=== PATIENT | male | born 1980 | race Caucasian/White ===

== ENCOUNTER 2023-12-07 10:14 | Inpatient (IN) | payer SELFPAY ==
[2023-12-07 11:04] VITALS: BP 168/101; PULSE 137; RESP 18; TEMP 36.6; O2SAT 97; BMI 24.5
--- NOTE | 2023-12-07 11:08 | ECG_ITS ---
[facility] Test Date: 2023-12-07 Pat Name: Kalpesh Jim Department: Room: Gender: Male Senior Corporate Recruiter: : 1980 Requested By: Irish Young Order Number: [id number] Monserrat MD: Ha Duran M.D. Measurements Intervals [place] Rate: 142 P: 64 MO: 134 QRS: 73 QRSD: 81 T: 57 QT: 289 QTc: 445 Interpretive Statements SINUS TACHYCARDIA MODERATE ST DEPRESSION [0.05+ mV ST DEPRESSION] No previous ECG available for comparison Electronically Signed On 12-07-2023 14:22:26 CDT by Ha Duran M.D. [id number]
--- NOTE | 2023-12-07 11:34 | W.ED.ALCOHOL ---
HPI - Alcohol General: Chief Complaint: General Medical Stated Complaint: detox from alcohol Time Seen by Provider: 12/07/23 11:24 Source: patient Mode of arrival: ambulatory Limitations: no limitations History of Present Illness: Patient is a 43-year-old male presents to ED today stating his housekeeping director told him to come to the emergency department for hospitalization for alcohol detox. He reportedly has been staying in some type of sober living facility. He states he had a 5-month stent of sobriety but relapsed 3 months ago and has been drinking since. He states has remained clean from methamphetamine. He arrives acutely intoxicated. He states he is having issues at his sobriety house stating he is having some homicidal thoughts regarding some of the other individuals. He is not suicidal. MD complaint: alcohol intoxication and desires rehab Last drink: Hours (ago) Chronic alcohol use: Yes Previous visits for alcohol intoxication: No Recent trauma: No Associated symptoms: Reports no associated symptoms and depression; Deny abdominal pain, nausea, suicidal ideation, syncope or vomiting Treatments prior to arrival: none Review of Systems Const: Denies: fever(s) or chills Card: Denies: chest pain, palpitations, lightheadedness or syncope Resp: Denies: dyspnea GI: Denies: abdominal pain, nausea, vomiting or diarrhea Skin/Breast: Denies: rash Neuro: Denies: headache(s) Psych: Reports: anxiety, depression, mood swings, irritability and homicidal ideation; Denies: paranoia, visual hallucinations, auditory hallucinations or suicidal ideation Physical Exam Const: COMMON NORMALS: no acute distress, average body habitus, patient oriented x3, alert and well nourished GENERAL APPEARANCE: cooperative and odor of alcohol detected ORIENTATION/CONSCIOUSNESS: Yes awake, Yes oriented to person, Yes oriented to place and Yes oriented to time Resp: COMMON NORMALS: normal respiratory effort and clear to auscultation bilaterally AUSCULTATION: clear to auscultation bilaterally Cardio: COMMON NORMALS: regular rate RATE: regular rate and tachycardic Neuro: YASSINE COMA SCALE: document GCS findings [place] coma scale eye opening: Spontaneous [place] coma scale verbal response: Orientated Yass[place] coma scale motor response: Obey commands Yassine coma scale total score: 15 COMMON NORMALS: patient oriented x3, moves all extremities, no focal motor deficits and no sensory deficits noted SENSORIUM/ORIENTATION: Yes alert, Yes oriented to person, Yes oriented to place and Yes oriented to time Psych: COMMON NORMALS: mental status grossly normal, Normal thought process present, cooperative, normal affect, activity/motor behavior normal, denies hallucinations and denies suicidal ideation APPEARANCE: Yes grossly normal and Yes other (intoxicated) ATTITUDE: Yes calm ACTIVITY/MOTOR BEHAVIOR: Yes appropriate eye contact and No psychomotor agitation SPEECH: Yes slurred MOOD & AFFECT: Yes euthymic mood THOUGHT PROCESS: Normal thought process present THOUGHT CONTENT: Yes Normal thought content present MEMORY/COGNITION: Yes memory grossly intact INSIGHT: Fair insight present (Psych) JUDGEMENT: Limited judgement present (Psych) (due to alcohol intoxication) Course Consultations: Consultation #1: Dr. Clinton-accepts to NPU Vital Signs: Vital signs: Vital Signs Temperature 97.9 F 12/07/23 11:04 Pulse Rate 85 12/07/23 12:08 Respiratory Rate 19 H 12/07/23 12:08 Blood Pressure 119/71 12/07/23 12:08 Pulse Oximetry 96 12/07/23 12:08 Oxygen Delivery Me thod Room Air 12/07/23 12:08 MDM - Alcohol Medical Decision Making Patient will be an admit to NPU to Dr. Clinton for treatment of his alcoholism, depression, homicidal ideations. Lab Data 12/07/23 11:44 12/07/23 11:44 Laboratory Results WBC 12.88 10^3/uL (3.29-11.43) H 12/07/23 11:44 RBC 5.91 10^6/uL (3.85-5.65) H 12/07/23 11:44 Hgb 16.90 g/dL (11.27-16.99) 12/07/23 11:44 Hct 48.4 % (37-53) 12/07/23 11:44 MCV 81.9 fl (82-101) L 12/07/23 11:44 MCH 28.6 pg (27-33) 12/07/23 11:44 MCHC 34.9 g/dL (30-55) 12/07/23 11:44 RDW 12.8 % (12.1-15.1) 12/07/23 11:44 Plt Count 389 10^3/cmm (157-399) 12/07/23 11:44 MPV 10.8 fL (7.4-10.4) H 12/07/23 11:44 Neut % (Auto) 52.4 % 12/07/23 11:44 Lymph % (Auto) 42.0 % 12/07/23 11:44 [place] % (Auto) 3.2 % 12/07/23 11:44 Eos % (Auto) 1.6 % 12/07/23 11:44 Baso % (Auto) 0.5 % 12/07/23 11:44 Neut # (Auto) 6.75 10^3/uL (1.8-7.7) 12/07/23 11:44 Lymph # (Auto) 5.4 10^3/uL (0.8-4.8) H 12/07/23 11:44 [place] # (Auto) 0.4 10^3/uL (0.2-0.9) 12/07/23 11:44 Eos # (Auto) 0.2 10^3/uL (0.0-0.8) 12/07/23 11:44 Baso # (Auto) 0.1 10^3/uL (0.0-0.1) 12/07/23 11:44 Nucleated RBC % (auto) 0 % 12/07/23 11:44 Nucleated RBCs # 0.0 /100WBC 12/07/23 11:44 Sodium 140 mmol/L (136-145) 12/07/23 11:44 Potassium 3.4 mmol/L (3.5-5.1) L 12/07/23 11:44 Chloride 103 mmol/L (98-107) 12/07/23 11:44 Carbon Dioxide 17 mmol/L (22-29) L 12/07/23 11:44 Anion Gap 23.4 (5-19) H 12/07/23 11:44 BUN 14 mg/dL (6-20) 12/07/23 11:44 Creatinine 1.0 mg/dL (0.7-1.2) 12/07/23 11:44 GFR Calculation 81.2 mL/min (90-130) L 12/07/23 11:44 Glucose 137 mg/dL (65-115) H 12/07/23 11:44 Calculated Osmolality 293 mOsm/kg (285-295) 12/07/23 11:44 Calcium 9.0 mg/dL (8.5-10.5) 12/07/23 11:44 Total Bilirubin 0.4 mg/dL (0.15-1.2) 12/07/23 11:44 AST 25 U/L (0-40) 12/07/23 11:44 ALT 19 U/L (0-41) 12/07/23 11:44 Alkaline Phosphatase 92 U/L (40-130) 12/07/23 11:44 Total Protein 7.9 g/dL (6.6-8.7) 12/07/23 11:44 Albumin 4.6 g/dL (3.5-5.2) 12/07/23 11:44 Globulin 3.3 g/dL (1.3-4.6) 12/07/23 11:44 Salicylates < 0.3 mg/dL (3-10) L 12/07/23 11:44 Urine Opiates Screen Negative ng/mL (Negative) 12/07/23 11:59 Acetaminophen < 5.0 ug/mL (10-30) L 12/07/23 11:44 Ur Barbiturates Screen Negative ng/mL (Negative) 12/07/23 11:59 Ur Phencyclidine Scrn Negative ng/mL (Negative) 12/07/23 11:59 Ur Amphetamines Screen Negative ng/mL (Negative) 12/07/23 11:59 U Benzodiazepines Scrn Negative ng/mL (Negative) 12/07/23 11:59 Urine Cocaine Screen Negative ng/mL (Negative) 12/07/23 11:59 U Marijuana (THC) Screen Negative ng/mL (Negative) 12/07/23 11:59 Ethyl Alcohol 236 mg/dL (0-10) H 12/07/23 11:44 No radiology studies performed this visit Discharge Plan Discharge Patient Disposition: Admitted As Inpatient Admit Provider: Parish Clinton Clinical Impression: Alcohol abuse, Homicidal ideation Alcohol intoxication Qualifiers: Complication of substance-induced condition: uncomplicated Qualified Code(s): F10.920 - Alcohol use, unspecified with intoxication, uncomplicated Depression Qualifiers: Depression Type: unspecified Qualified Code(s): F32.A - Depression, unspecified Condition: Stable Coding Level of Care Code ED News Gathering Technician for Faviola Fallon
[2023-12-07] MEDS: sodium chloride 0.9% 1,000 ML 999 ML IV (12:03)
[2023-12-07 12:08] VITALS: BP 119/71; PULSE 85; RESP 19; O2SAT 96
[2023-12-07 12:19] LABS: Alanine Aminotransferase 19 U/L (0-41); Albumin Level 4.6 g/dL (3.5-5.2); Alcohol Level 236 mg/dL (0-10); Alkaline Phosphatase 92 U/L (40-130); Aspartate Amino Transferase 25 U/L (0-40); Blood Urea Nitrogen 14 mg/dL (6-20); Carbon Dioxide 17 mmol/L (22-29); Chloride 103 mmol/L (98-107); Creatinine Clr Calc Pharmacy 102.8171; Globulin 3.3 g/dL (1.3-4.6); Glomerular Filtration Rate 81.2 mL/min (90-130); Glucose 137 mg/dL (65-115); Osmolality Calculated 293 mOsm/kg (285-295); Sodium 140 mmol/L (136-145); Total Bilirubin 0.4 mg/dL (0.15-1.2); Total Protein 7.9 g/dL (6.6-8.7)
[2023-12-07 12:21] LABS: Acetaminophen < 5.0 ug/mL (10-30); Salicylate < 0.3 mg/dL (3-10)
[2023-12-07 12:22] LABS: Anion Gap 23.4 (5-19); Potassium 3.4 mmol/L (3.5-5.1)
[2023-12-07 12:29] LABS: Amphetamines Screen Urine Negative (Negative); Barbiturates Screen Urine Negative (Negative); Benzodiazepines Screen Urine Negative (Negative); Cocaine Screen Urine Negative (Negative); Opiate Screen Urine Negative (Negative); PCP Screen Urine Negative (Negative); THC Screen Urine Negative (Negative)
[2023-12-07 12:39] LABS: Basophils # 0.1 10^3/uL (0.0-0.1); Basophils % 0.5 %; Eosinophils # 0.2 10^3/uL (0.0-0.8); Eosinophils % 1.6 %; Hematocrit 48.4 % (37-53); Lymphocytes # 5.4 10^3/uL (0.8-4.8); Mean Corpuscular HGB Conc 34.9 g/dL (30-55); Mean Corpuscular Hemoglobin 28.6 pg (27-33); Mean Corpuscular Volume 81.9 fl (82-101); Mean Platelet Volume 10.8 fL (7.4-10.4); Monocytes # 0.4 10^3/uL (0.2-0.9); Monocytes % 3.2 %; Neutrophils # 6.75 10^3/uL (1.8-7.7); Neutrophils % 52.4 %; Nucleated Red Blood Cells % 0 %; Platelet Count 389 10^3/cmm (157-399); Red Blood Count 5.91 10^6/uL (3.85-5.65); Red Cell Distribution Width 12.8 % (12.1-15.1); White Blood Count 12.88 10^3/uL (3.29-11.43)
[2023-12-07] MEDS: potassium chloride ER 20 mEq Tablet 40 MEQ PO (12:47)
[2023-12-07 12:53] LABS: Slide Review Slide Review Perform
[2023-12-07 14:00] VITALS: BP 117/81; PULSE 76; RESP 16; TEMP 36.2; O2SAT 98
--- NOTE | 2023-12-07 15:01 | PC.ADMIT ---
[facility] Admission Note: The patient,Kalpesh Jim,43 y/o, was given written information regarding hospital policies, unit procedures and contact persons. Patient's smoking status: . Vital Signs - 8 hr 12/07/23 11:04 12/07/23 12:08 12/07/23 14:00 Temperature 97.9 F 97.2 F L Pulse Rate 137 H 85 76 Respiratory Rate 18 19 H 16 Blood Pressure 168/101 119/71 117/81 Pulse Oximetry 97 96 98 Oxygen Delivery Method Room Air Room Air Room Air 12/07/23 14:45 Temperature Pulse Rate Respiratory Rate Blood Pressure Pulse Oximetry Oxygen Delivery Method Room Air ADMITTED FROM [facility] ER AT 1357 VOLUNTARY STATUS. PT IS OBVIOUSLY INTOXICATED WITH A BAL OF 236 WHEN IN THE ER. PT STATES HE IS HERE DUE TO RELAPSING ALL THE TIME AND I LIVE IN A SOBRIETY HOUSE AT [place]. PT DENIES PAIN. DENIES SI/HI AND AVH AT THIS TIME. PT STATES HE DOES NOT TAKE MEDICATIONS ROUTINELY AND HAS BEEN TO A [facility] ONCE IN [facility]. PT DENIES ANY SUICIDE ATTEMPTS IN THE PAST. SKIN ASSESSMENT REVEALS NO SKIN ISSUES AT TIME ADMISSION. NKDA. PT WAS ORIENTATED TO UNIT, GIVEN DEMI MADYSON, OFFERED A SANDWICH AND DRINK. ALL QUESTIONS ANSWERED AND SUPPORT VOICED.
[2023-12-07] MEDS: trazodone 50 mg Tablet PO (20:41)
[2023-12-07 20:56] VITALS: BP 141/88; PULSE 69; RESP 15; TEMP 36.5; O2SAT 96
[2023-12-08 00:11] VITALS: BP 107/61; PULSE 59; RESP 13; O2SAT 97
[2023-12-08 03:38] VITALS: BP 111/65; PULSE 73; RESP 15; TEMP 36.4; O2SAT 98
--- NOTE | 2023-12-08 06:07 | P.NPUHP_ITS ---
Providers/Chief Complaint 2 Admitting Physician: Parish Clinton MD Chief Complaint: detox from alcohol HPI NPU History of Present Illness Kalpesh Jim is a 43 year old male who presented to the emergency department with the following report: Chief Complaint: General Medical Stated Complaint: detox from alcohol Time Seen by Provider: 12/07/23 11:24 Source: patient Mode of arrival: ambulatory Limitations: no limitations History of Present Illness: Patient is a 43-year-old male presents to ED today stating his lead worker of housekeeping and laundry told him to come to the emergency department for hospitalization for alcohol detox. He reportedly has been staying in some type of sober living facility. He states he had a 5-month stent of sobriety but relapsed 3 months ago and has been drinking since. He states has remained clean from methamphetamine. He arrives acutely intoxicated. He states he is having issues at his sobriety house stating he is having some homicidal thoughts regarding some of the other individuals. He is not suicidal. complaint: alcohol intoxication and desires rehab Last drink: Hours (ago) Chronic alcohol use: Yes Previous visits for alcohol intoxication: No Recent trauma: No Associated symptoms: Reports no associated symptoms and depression; Deny abdominal pain, nausea, suicidal ideation, syncope or vomiting Treatments prior to arrival: none. He was admitted to the neuropsychiatric unit for definitive treatment of those issues. He is unknown to inpatient or outpatient psychiatric services here. He presents today reporting: Chief complaint The patient sought consultation due to issues with alcohol consumption and experiencing negative thoughts, particularly when under the influence of alcohol. History of the present complaint The patient, a 44-year-old male, presented with concerns related to alcohol consumption and associated negative thoughts. He reported that he has been drinking daily for the past three years, which has been causing problems in his life. He also mentioned that he has been having thoughts of not wanting to be alive when he gets drunk. The patient has a history of substance abuse, starting with methamphetamine use at the age of 13. He reported that he quit methamphetamine use nine months ago. He also reported a history of opiate use, specifically heroin. He has been to rehab once, about eight months ago, and was sober for five months during his stay. However, he relapsed two months ago and has been drinking since then. He reported that he has been able to stay sober from all other substances. The patient also reported a history of depression, with feelings of helplessness, hopelessness, worthlessness, sleep problems, and low energy. He mentioned that he has had passive thoughts of and has been reckless with his life at times. He denied any active suicidal ideation or self-harming behaviors. In addition to depression, the patient reported long-standing issues with anxiety, characterized by constant worrying and an inability to turn off these thoughts. He denied any physical symptoms associated with his anxiety. The patient reported a history of incarceration, with the longest time spent in [facility] being four years. He has been out of [facility] for the past nine months. 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 He is currently living in [facility], a residential program with about 20 residents. The patient expressed a desire to go to rehab and then return to [facility]. He expressed a desire for medication to help with cravings but hopes that securing his sobriety will help alleviate his depression and anxiety. Mental health history The patient has a history of psychiatric hospitalizations, with two instances reported. The last hospitalization was approximately two to three years ago in [place]. The patient has also previously engaged with a [facility] professional around three years ago. However, the patient has never been on medications for depression or anxiety. Social history The patient has a history of tobacco use, having smoked for about 20 years before switching to vaping and chewing tobacco two years ago. The patient started drinking alcohol at the age of 27 and has been drinking daily for the past three years. The patient also has a history of methamphetamine use, starting at the age of 13 and ending nine months ago. The patient also reported a history of opiate use, specifically heroin. The patient has been to rehab once and has been living in [facility] for the past eight months. The patient has been sober for five months during his stay at the [facility] but relapsed two months ago, primarily with alcohol. The patient has no legal issues currently but has been incarcerated in the past, with the longest sentence being four years. The patient has been out of incarceration for nine months. Meds NPU Home Medications Medication Instructions Recorded Confirmed Last Taken Type No Known Home Medications 12/07/23 12/07/23 Unknown History Allergies Allergy/AdvReac Type Severity Reaction Status Date / Time No Known Allergies Allergy Verified 12/07/23 11:08 Mental Status Exam 2 MSE Comments: This is a well-nourished well-developed white male in hospital scrubs with adequate grooming and limited eye contact. Significant tattooing on exposed skin with left arm almost complete sleeve. No abnormal movements except for mild psychomotor retardation. Cooperative with exam in mild to moderate distress. Speech was slightly decreased rate and volume. Mood described as doing okay I guess, affect congruent and subdued. Thought process organized. Thought content: Patient denied suicidal or homicidal ideation, there were no delusions reported or noted, he denied any auditory or visual hallucinations. The patient reported experiencing depression from the age of 19, characterized by feelings of helplessness, hopelessness, worthlessness, sleep problems, low energy, and a lack of enjoyment in life. The patient has had passive thoughts of and has been reckless with his life at times, particularly when using substances. However, the patient denied any active suicidal ideation or self- harming behaviors. The patient also reported long-standing issues with anxiety, characterized by constant worrying and difficulty turning off these thoughts. The patient denied any hallucinations or delusions unrelated to substance use. The patient reported occasional nightmares related to past traumatic experiences. Attention and concentration appear intact and memory appears reliable but none were formally tested. He is alert and oriented x 3. Insight and judgment are limited and impulse control is impaired. Vitals/I&O/Wt Last Vital Signs Temp 97.5 F L 12/08/23 03:38 Pulse 73 12/08/23 03:38 Resp 15 12/08/23 03:38 BP 111/65 12/08/23 03:38 Pulse Ox 98 12/08/23 03:38 O2 Del Method Room Air 12/08/23 03:38 12/07/23 12/07/23 12/08/23 14:59 22:59 06:59 Intake Total 1000 / 1000 Balance 1000 / 1000 Weight last 48 hrs Weight 79.832 kg Data NPU 12/07/23 11:44 12/07/23 11:44 A&P Assessment and plan (1) Alcohol use disorder, severe, dependence: (2) Alcohol intoxication: Qualifiers: Complication of substance-induced condition: uncomplicated Qualified Code(s): F10.920 - Alcohol use, unspecified with intoxication, uncomplicated (3) Homicidal ideation: (4) Major depressive disorder, recurrent: (5) Methamphetamine use disorder, severe, in sustained remission, dependence: Plan Patient is a 43-year-old male admitted with no history of services inpatient or outpatient through [facility], but past services through [facility] who presents with a long history of substance use, including alcohol, tobacco, methamphetamines, and opiates. The patient has a history of depression and anxiety, which appears to be exacerbated by his substance use. The patient has been in and out of treatment and has had periods of sobriety, but has recently relapsed with alcohol use while in [facility]. He is open to starting naltrexone appropriate but is unsure of other medications believing that he manages his addiction his mood and depression and anxiety issues will improve. 1. Continue off of medication but will start naltrexone 50 mg p.o. daily when appropriate and available. 2. Encourage individual, group and milieu therapy. 3. Continue q-15 minute checks for safety.? 4.?Recommend sober living treatment at the highest level of care to which the patient is willing to commit. Involuntary Hold Information 2 96 Hour Hold: 96 Hour Involuntary Admission: No Attestations NPU 2 Medical Necessity Statement*: Inpatient hospitalization is medically necessary and the clinically appropriate intervention ?at this time.? We will monitor/initiate medications and make changes as indicated.? The patient will be in the hospital for over 2 midnights.? Likely length of stay 5-7 days. Coding Level of Care Code Acute Code for Chg Fwd Diagnoses Alcohol use disorder, severe, dependence F10.20 Alcohol intoxication F10.920 Complication of substance-induced condition: uncomplicated Homicidal ideation R45.850 Major depressive disorder, recurrent F33.9 Methamphetamine use disorder, severe, in sustained remission, dependence F15.21
[2023-12-08 07:54] VITALS: BP 119/76; PULSE 63; RESP 16; TEMP 36.6; O2SAT 99
[2023-12-08] MEDS: thiamine 100 mg Tablet PO (08:34)
[2023-12-08] MEDS: multivitamin therapeutic Tablet 1 TAB PO (08:34)
[2023-12-08] MEDS: folic acid 1 mg Tablet PO (08:34)
[2023-12-08 12:00] VITALS: BP 138/89; PULSE 68; RESP 16; TEMP 37.1; O2SAT 99
[2023-12-08 16:00] VITALS: BP 135/87; PULSE 62; RESP 16; TEMP 36.6; O2SAT 99
[2023-12-08 20:00] VITALS: BP 134/84; PULSE 71; RESP 15; TEMP 36.6; O2SAT 97
[2023-12-08] MEDS: trazodone 50 mg Tablet PO (21:11)
[2023-12-08] MEDS: hyDROXYzine 25 mg Capsule 50 MG PO (21:11)
[2023-12-09] VITALS: BP 120/74; PULSE 52; RESP 13; O2SAT 99
[2023-12-09 04:00] VITALS: BP 134/82; PULSE 56; RESP 14; TEMP 36.4; O2SAT 99
[2023-12-09 07:51] VITALS: BP 125/81; PULSE 63; RESP 16; TEMP 36.6; O2SAT 99
[2023-12-09] MEDS: thiamine 100 mg Tablet PO (08:37)
[2023-12-09] MEDS: multivitamin therapeutic Tablet 1 TAB PO (08:37)
[2023-12-09] MEDS: folic acid 1 mg Tablet PO (08:37)
[2023-12-09 12:00] VITALS: BP 126/84; PULSE 59; RESP 16; TEMP 36.9; O2SAT 98
[2023-12-09 14:04] VITALS: BP 137/83; PULSE 89; RESP 15; TEMP 37.1; O2SAT 100
--- NOTE | 2023-12-09 16:06 | P.NPUPN_ITS ---
Subjective NPU 2 Subjective: Patient presented today reporting that he is doing okay. He has been working with the social work team to find options and sober living. Reports are that they have filled out and turned in documents for referral to [facility] and are exploring other options as well. Additionally [facility] has been contacted and we are working on making sure he can return there either after rehab or leading up to rehab if she is facing a bed date further in the future and he will not be able to stay here in the interim. He denied any new issues and denied having significant withdrawal symptoms. We continue to discuss possibly starting naltrexone with the future I on Vivitrol soon. Mental Status Exam 2 MSE Comments: This is a well-nourished well-developed white male in hospital scrubs with adequate grooming and limited eye contact. Significant tattooing on exposed skin with left arm almost complete sleeve. No abnormal movements except for mild psychomotor retardation. Cooperative with exam in mild to moderate distress. Speech was slightly decreased rate and volume. Mood described as doing okay , affect congruent and subdued. Thought process organized. Thought content: Patient denied suicidal or homicidal ideation, there were no delusions reported or noted, he denied any auditory or visual hallucinations. The patient reported experiencing depression from the age of 19, characterized by feelings of helplessness, hopelessness, worthlessness, sleep problems, low energy, and a lack of enjoyment in life. The patient has had passive thoughts of and has been reckless with his life at times, particularly when using substances. However, the patient denied any active suicidal ideation or self-harming behaviors. The patient also reported long-standing issues with anxiety, characterized by constant worrying and difficulty turning off these thoughts. The patient denied any hallucinations or delusions unrelated to substance use. The patient reported occasional nightmares related to past traumatic experiences. Attention and concentration appear intact and memory appears reliable but none were formally tested. He is alert and oriented x 3. Insight and judgment are limited and impulse control is impaired. Vitals/I&O/Wt Last Vital Signs Temp 98.7 F 12/09/23 14:04 Pulse 89 12/09/23 14:04 Resp 15 12/09/23 14:04 BP 137/83 12/09/23 14:04 Pulse Ox 100 12/09/23 14:04 O2 Del Method Room Air 12/09/23 14:04 Data NPU 12/07/23 11:44 12/07/23 11:44 A&P Assessment and plan (1) Alcohol use disorder, severe, dependence: (2) Alcohol intoxication: Qualifiers: Complication of substance-induced condition: uncomplicated Qualified Code(s): F10.920 - Alcohol use, unspecified with intoxication, uncomplicated (3) Homicidal ideation: (4) Major depressive disorder, recurrent: (5) Methamphetamine use disorder, severe, in sustained remission, dependence: Plan Patient is a 43-year-old male admitted with no history of services inpatient or outpatient through [facility], but past services through [facility] who presents with a long history of substance use, including alcohol, tobacco, methamphetamines, and opiates. The patient has a history of depression and anxiety, which appears to be exacerbated by his substance use. The patient has been in and out of treatment and has had periods of sobriety, but has recently relapsed with alcohol use while in [facility]. He is open to starting naltrexone appropriate but is unsure of other medications believing that he manages his addiction his mood and depression and anxiety issues will improve. 1. Continue off of medication but will start naltrexone 50 mg p.o. daily when appropriate and available. 2. Encourage individual, group and milieu therapy. 3. Continue q-15 minute checks for safety.? 4.?Recommend sober living treatment at the highest level of care to which the patient is willing to commit. Involuntary Hold Information 2 96 Hour Hold: 96 Hour Involuntary Admission: No Attestations NPU 2 Medical Necessity Statement*: Inpatient hospitalization is medically necessary and the clinically appropriate intervention ?at this time.? We will monitor/initiate medications and make changes as indicated.?Likely length of stay 4-6 days. Coding Level of Care Code Acute Code for [facility] Fwd Diagnoses Alcohol use disorder, severe, dependence F10.20 Alcohol intoxication F10.920 Complication of substance-induced condition: uncomplicated Homicidal ideation R45.850 Major depressive disorder, recurrent F33.9 Methamphetamine use disorder, severe, in sustained remission, dependence F15.21
[2023-12-09] MEDS: hyDROXYzine 25 mg Capsule 50 MG PO (18:53)
[2023-12-09 20:00] VITALS: BP 120/75; PULSE 63; TEMP 36.6; O2SAT 99
[2023-12-10] VITALS: BP 117/74; PULSE 54; RESP 14; TEMP 36.6; O2SAT 99
[2023-12-10 03:38] VITALS: BP 123/80; PULSE 58; RESP 14; TEMP 36.6; O2SAT 97
[2023-12-10 08:00] VITALS: BP 126/83; PULSE 81; RESP 20; TEMP 36.6; O2SAT 99
[2023-12-10] MEDS: thiamine 100 mg Tablet PO (08:16)
[2023-12-10] MEDS: multivitamin therapeutic Tablet 1 TAB PO (08:16)
[2023-12-10] MEDS: folic acid 1 mg Tablet PO (08:16)
[2023-12-10] MEDS: nicotine 21 mg Patch 1 PATCH TRANSDERMA (08:28)
[2023-12-10 14:00] VITALS: BP 132/79; PULSE 65; RESP 18; TEMP 36.6; O2SAT 99
--- NOTE | 2023-12-10 14:36 | P.NPUPN_ITS ---
Subjective NPU 2 Subjective: Patient presented today reporting that he is doing pretty good. He has been working with the social work team to find options and sober living and has a bed date for [facility]. Additionally [facility] might allow him to stay there while waiting for that date. He denied any new issues and denied having significant withdrawal symptoms. We continue to discuss possibly starting naltrexone with the future I on Vivitrol soon. Mental Status Exam 2 MSE Comments: This is a well-nourished well-developed white male in hospital scrubs with adequate grooming and limited eye contact. Significant tattooing on exposed skin with left arm almost complete sleeve. No abnormal movements except for mild psychomotor retardation. Cooperative with exam in mild to moderate distress. Speech was slightly decreased rate and volume. Mood described as doing okay , affect congruent and subdued. Thought process organized. Thought content: Patient denied suicidal or homicidal ideation, there were no delusions reported or noted, he denied any auditory or visual hallucinations. Attention and concentration appear intact and memory appears reliable but none were formally tested. He is alert and oriented x 3. Insight and judgment are limited and impulse control is impaired. Vitals/I&O/Wt Last Vital Signs Temp 98 F 12/10/23 14:00 Pulse 65 12/10/23 14:00 Resp 18 12/10/23 14:00 BP 132/79 12/10/23 14:00 Pulse Ox 99 12/10/23 14:00 O2 Del Method Room Air 12/10/23 03:38 Data NPU 12/07/23 11:44 12/07/23 11:44 A&P Assessment and plan (1) Alcohol use disorder, severe, dependence: (2) Alcohol intoxication: Qualifiers: Complication of substance-induced condition: uncomplicated Qualified Code(s): F10.920 - Alcohol use, unspecified with intoxication, uncomplicated (3) Homicidal ideation: (4) Major depressive disorder, recurrent: (5) Methamphetamine use disorder, severe, in sustained remission, dependence: Plan Patient is a 43-year-old male admitted with no history of services inpatient or outpatient through [facility], but past services through [facility] who presents with a long history of substance use, including alcohol, tobacco, methamphetamines, and opiates. The patient has a history of depression and anxiety, which appears to be exacerbated by his substance use. The patient has been in and out of treatment and has had periods of sobriety, but has recently relapsed with alcohol use while in [facility]. He is open to starting naltrexone appropriate but is unsure of other medications believing that he manages his addiction his mood and depression and anxiety issues will improve. 1. Continue off of medication but will start consider naltrexone 50 mg p.o. daily. 2. Encourage individual, group and milieu therapy. 3. Continue q-15 minute checks for safety.? 4.?Recommend sober living treatment at the highest level of care to which the patient is willing to commit. Involuntary Hold Information 2 96 Hour Hold: 96 Hour Involuntary Admission: No Attestations NPU 2 Medical Necessity Statement*: Inpatient hospitalization is medically necessary and the clinically appropriate intervention ?at this time.? We will monitor/initiate medications and make changes as indicated.?Likely length of stay 1-4 days. Coding Level of Care Code Acute Code for [facility] Fwd Diagnoses Alcohol use disorder, severe, dependence F10.20 Alcohol intoxication F10.920 Complication of substance-induced condition: uncomplicated Homicidal ideation R45.850 Major depressive disorder, recurrent F33.9 Methamphetamine use disorder, severe, in sustained remission, dependence F15.21
[2023-12-10 20:57] VITALS: BP 131/88; PULSE 88; RESP 18; TEMP 36.7; O2SAT 100
[2023-12-10] MEDS: trazodone 50 mg Tablet PO (21:03)
[2023-12-11 06:00] VITALS: BP 118/72; PULSE 53; RESP 16; TEMP 36.5; O2SAT 100
--- NOTE | 2023-12-11 09:35 | P.NPUDS_ITS ---
Diagnoses at Discharge Discharge Diagnosis (1) Alcohol use disorder, severe, dependence: Status: Acute (2) Alcohol intoxication: Status: Acute Qualifiers: Complication of substance-induced condition: uncomplicated Qualified Code(s): F10.920 - Alcohol use, unspecified with intoxication, uncomplicated (3) Homicidal ideation: Status: Acute (4) Major depressive disorder, recurrent: Status: Acute (5) Methamphetamine use disorder, severe, in sustained remission, dependence: Status: Acute Reason for Visit Reason for Visit: detox from alcohol Involuntary Hold Information 96 Hour Hold: 96 Hour Involuntary Admission: No Mental Status Exam MSE Comments: This is a well-nourished well-developed white male in hospital scrubs with adequate grooming and limited eye contact. Significant tattooing on exposed skin with left arm almost complete sleeve. No abnormal movements except for mild psychomotor retardation. Cooperative with exam in mild to moderate distress. Speech was slightly decreased rate and volume. Mood described as doing okay , affect congruent and subdued. Thought process organized. Thought content: Patient denied suicidal or homicidal ideation, there were no delusions reported or noted, he denied any auditory or visual hallucinations. Attention and concentration appear intact and memory appears reliable but none were formally tested. He is alert and oriented x 3. Insight and judgment are limited and impulse control is impaired. Discharge Data Studies Completed and Pending: Laboratory Results WBC 12.88 10^3/uL (3. 29-11.43) H 12/07/23 11:44 RBC 5.91 10^6/uL (3.8 5-5.65) H 12/07/23 11:44 Hgb 16.90 g/dL (11.27 -16.99) 12/07/23 11:44 Hct 48.4 % (37-53) 12/07/23 11:44 MCV 81.9 fl (82-101) L 12/07/23 11:44 MCH 28.6 pg (27-33) 12/07/23 11:44 MCHC 34.9 g/dL (30-55) 12/07/23 11:44 RDW 12.8 % (12.1-15.1 ) 12/07/23 11:44 Plt Count 389 10^3/cmm (157 -399) 12/07/23 11:44 MPV 10.8 fL (7.4-10.4 ) H 12/07/23 11:44 Neut % (Auto) 52.4 % 12/07/23 11:44 Lymph % (Auto) 42.0 % 12/07/23 11:44 Gordon % (Auto) 3.2 % 12/07/23 11:44 Eos % (Auto) 1.6 % 12/07/23 11:44 Baso % (Auto) 0.5 % 12/07/23 11:44 Neut # (Auto) 6.75 10^3/uL (1.8 -7.7) 12/07/23 11:44 Lymph # (Auto) 5.4 10^3/uL (0.8- 4.8) H 12/07/23 11:44 Gordon # (Auto) 0.4 10^3/uL (0.2- 0.9) 12/07/23 11:44 Eos # (Auto) 0.2 10^3/uL (0.0- 0.8) 12/07/23 11:44 Baso # (Auto) 0.1 10^3/uL (0.0- 0.1) 12/07/23 11:44 Nucleated RBC % (a uto) 0 % 12/07/23 11:44 Nucleated RBCs # 0.0 /100WBC 12/07/23 11:44 Sodium 140 mmol/L (136-1 45) 12/07/23 11:44 Potassium 3.4 mmol/L (3.5-5 .1) L 12/07/23 11:44 Chloride 103 mmol/L (98-10 7) 12/07/23 11:44 Carbon Dioxide 17 mmol/L (22-29) L 12/07/23 11:44 Anion Gap 23.4 (5-19) H 12/07/23 11:44 BUN 14 mg/dL (6-20) 12/07/23 11:44 Creatinine 1.0 mg/dL (0.7-1. 2) 12/07/23 11:44 GFR Calculation 81.2 mL/min (90-1 30) L 12/07/23 11:44 Glucose 137 mg/dL (65-115 ) H 12/07/23 11:44 Calculated Osmolal ity 293 mOsm/kg (285- 295) 12/07/23 11:44 Calcium 9.0 mg/dL (8.5-10 .5) 12/07/23 11:44 Total Bilirubin 0.4 mg/dL (0.15-1 .2) 12/07/23 11:44 AST 25 U/L (0-40) 12/07/23 11:44 ALT 19 U/L (0-41) 12/07/23 11:44 Alkaline Phosphata se 92 U/L (40-130) 12/07/23 11:44 Total Protein 7.9 g/dL (6.6-8.7 ) 12/07/23 11:44 Albumin 4.6 g/dL (3.5-5.2 ) 12/07/23 11:44 Globulin 3.3 g/dL (1.3-4.6 ) 12/07/23 11:44 Salicylates < 0.3 mg/dL (3-10 ) L 12/07/23 11:44 Urine Opiates Scre en Negative ng/mL (N egative) 12/07/23 11:59 Acetaminophen < 5.0 ug/mL (10-3 0) L 12/07/23 11:44 Ur Barbiturates Sc reen Negative ng/mL (N egative) 12/07/23 11:59 Ur Phencyclidine S crn Negative ng/mL (N egative) 12/07/23 11:59 Ur Amphetamines Sc reen Negative ng/mL (N egative) 12/07/23 11:59 U Benzodiazepines Scrn Negative ng/mL (N egative) 12/07/23 11:59 Urine Cocaine Scre en Negative ng/mL (N egative) 12/07/23 11:59 U Marijuana (THC) Screen Negative ng/mL (N egative) 12/07/23 11:59 Ethyl Alcohol 236 mg/dL (0-10) H 12/07/23 11:44 Vitals: Last Vital Signs Temp 97.7 F 12/11/23 06:00 Pulse 53 L 12/11/23 06:00 Resp 16 12/11/23 06:00 BP 118/72 12/11/23 06:00 Pulse Ox 100 12/11/23 06:00 O2 Del Method Room Air 12/11/23 06:00 Discharge Plan Discharge Patient Disposition: Home Condition: Stable Prescriptions: New trazodone 50 mg Tablet 50 mg PO BEDTIME PRN (Reason: Sleep) 30 Days Qty: 30 1RF Vitamin B-1 (mononitrate) 100 mg Tablet 100 mg PO DAILY 30 Days Qty: 30 1RF Discharge Orders: Discharge Order (Routine); Ordered 12/11/23 Ordered By: Parish Clinton Referrals: [facility] [Other] - 12/22/23 10:00 am (Admittance date is 12/22 23 @ 10:00 am. ) Discharge Diet: Regular Discharge Activity: Resume usual activity Patient Instructions: Opioid Safety Discharge Attestations NPU Time Spent in Discharge Care*: less than 30 min Specific Discharge Activities: Specific discharge activities: educating patient, discussing with wrapper caser/social workers/dc planners, documenting/other paperwork and evaluating patient/reviewing data Coding Level of Care Code Acute Code for g Fwd Diagnoses Alcohol use disorder, severe, dependence F10.20 Alcohol intoxication F10.920 Complication of substance-induced condition: uncomplicated Homicidal ideation R45.850 Major depressive disorder, recurrent F33.9 Methamphetamine use disorder, severe, in sustained remission, dependence F15.21
[2023-12-11 09:53] VITALS: BP 118/72; PULSE 53; RESP 16; TEMP 36.5; O2SAT 100
== END 2023-12-11 12:23 | DRG 897 ==
LOC: ER 11:57 → NP 13:13
PROVIDERS: Admitting Provider Psychiatry & Neurology Psychiatry; Emergency Provider Physician Assistant; Visit Provider Psychiatry & Neurology Psychiatry
DX: F10.229 Alcohol dependence with intoxication, unspecified (principal); F33.9 Major depressive disorder, recurrent, unspecified; F41.9 Anxiety disorder, unspecified; R45.850 Homicidal ideations; F19.21 Other psychoactive substance dependence, in remission; Z72.0 Tobacco use
CPT/HCPCS: 80053; 80306; 80307; 85025; 93005; 96360; 97150; 97165; 99285; J7030

== ENCOUNTER 2024-03-20 16:44 | Emergency (ER) | payer MEDICAID, SELFPAY ==
[2024-03-20 16:48] VITALS: BP 120/77; PULSE 99; RESP 17; TEMP 36.7; O2SAT 98; BMI 25.1
--- NOTE | 2024-03-20 17:15 | W.ED.ALCOHOL ---
HPI - Alcohol General: Chief Complaint: Alcohol Stated Complaint: Needs detox Time Seen by Provider: 03/20/24 17:08 History of Present Illness: Patient presents to the ER stating he is an alcoholic and relapsed and wants to go to detox. His last drink was about 2 hours ago. Patient denies any suicidal or homicidal ideation at this time. Patient has no other complaints at this time. Related Data Previous Rx's Medication Instructions Recorded thiamine mononitrate (vit B1) 100 100 mg PO DAILY 30 days #30 tabs 12/11/23 mg tablet (Vitamin B-1 (mononitrate)) trazodone 50 mg tablet 50 mg PO BEDTIME PRN Sleep 30 days 12/11/23 #30 tabs Allergies Allergy/AdvReac Type Severity Reaction Status Date / Time No Known Allergies Allergy Verified 12/14/23 10:20 Review of Systems General: Reports: 10 or more systems reviewed and unremarkable except in HPI and below PFSH ED PFSH: Medical History Psychiatric care Depression Alcohol abuse Physical Exam Const: COMMON NORMALS: no acute distress, average body habitus, patient oriented x3, no limitations, healthy appearing, alert and well nourished HENMT: COMMON NORMALS: normocephalic, atraumatic, hearing grossly normal bilaterally, external ears normal, Normal external nose present and moist oral mucous membranes HEAD & SCALP: normocephalic and atraumatic NOSE: Normal external nose present EXTERNAL EAR: Yes external ears normal Neck/C-Spine: COMMON NORMALS: no JVD Chest: COMMONS NORMALS: normal inspection of the chest and normal palpation of entire chest wall Resp: COMMON NORMALS: normal respiratory effort, No retractions, No use of accessory muscles and clear to auscultation bilaterally AUSCULTATION: clear to auscultation bilaterally Cardio: COMMON NORMALS: no JVD, regular rate, regular rhythm, S1 normal heart sound present, S2 normal heart sound present, No gallops present (Cardio), No clicks present (Cardio), No murmurs present (Cardio) and No rub (Cardio) RATE: regular rate RHYTHM: regular rhythm HEART SOUNDS: S1 normal heart sound present and S2 normal heart sound present GI: COMMON NORMALS: Normal to inspection, nondistended, normoactive bowel sounds present, Soft to palpation, non-tender, No hepatosplenomegaly present and no masses PALPATION: Yes Soft to palpation and Yes No hepatosplenomegaly present Neuro: COMMON NORMALS: patient oriented x3 SENSORIUM/ORIENTATION: Yes alert Course Vital Signs: Vital signs: Vital Signs Temperature 98.0 F 03/20/24 16:48 Pulse Rate 99 03/20/24 16:48 Respiratory Rate 17 03/20/24 16:48 Blood Pressure 120/77 03/20/24 16:48 Pulse Oximetry 98 03/20/24 16:48 Oxygen Delivery Me thod Room Air 03/20/24 16:48 MDM - Alcohol Medical Decision Making Patient is not actively going through detox or having tremors or DTs currently. We have no beds in [facility]. Patient denies suicidal homicidal ideation. Patient will be discharged and given information about outpatient treatment centers. Medical Records I reviewed the patient's medical records. Lab Data I reviewed the patient's lab results. No radiology studies performed this visit Discharge Plan Discharge Patient Disposition: Home Clinical Impression: Alcohol use disorder, severe, dependence Condition: Stable Prescriptions: No Action trazodone 50 mg Tablet 50 mg PO BEDTIME PRN (Reason: Sleep) 30 Days Qty: 30 1RF Vitamin B-1 (mononitrate) 100 mg Tablet 100 mg PO DAILY 30 Days Qty: 30 1RF Discharge Orders: Discharge ED (Routine); Ordered 03/20/24 Ordered By: Jair Menon Patient Instructions: Alcohol Use Disorder (ED) Activity Restrictions/Additional Instructions: Thank you for choosing [facility] for your healthcare needs today. Please realize that you were seen in the emergency department and that we are providing you with an emergency medical screening exam and this may not be a complete and all exclusive of all testing and/or medical workup we may need to determine your element or severity of your illness. It is very important that you follow-up as instructed with your primary care provider or specialist for the additional evaluation and to discuss your medical treatment plan. You may return to the emergency department should you have concerns or if your condition changes or worsens in any way. Coding Level of Care Code ED Verification Rep for Faviola Fallon
== END 2024-03-20 17:21 | disposition home or self-care (01) ==
PROVIDERS: Emergency Provider Emergency Medicine
DX: F10.20 Alcohol dependence, uncomplicated (principal)
CPT/HCPCS: 99281